=== PATIENT | female | born 2005 | race Two or more races ===

== ENCOUNTER 2024-05-02 20:42 | Emergency (ER) | payer MEDICAID ==
[~2024-05-02] VITALS: Ht 154.9 cm; Wt 52.9 kg
[2024-05-02 20:42] VITALS: BP 113/69; RESP 20; O2SAT 97
[2024-05-02 21:17] LABS: Basophils # (auto) 0 10 ^3/uL (0-0.2); Basophils % (auto) 0.3 % (0.0-2.0); Eosinophils # (auto) 0.2 10 ^3/uL (0-0.8); Eosinophils % (auto) 1.8 % (0.0-7.0); Hematocrit 33.2 % (36.0-46.0); Hemoglobin 11.5 g/dL (12.2-16.2); Lymphocytes # (auto) 2.2 10 ^3/uL (0.4-5.4); Lymphocytes % (auto) 23.7 % (10.0-50.0); Mean Corpuscular Hgb Conc. 34.5 g/dL (32.0-36.0); Monocytes # (auto) 0.5 10 ^3/uL (0-1.3); Monocytes % (auto) 5.8 % (0.0-12.0); Neutrophils # (auto) 6.4 10 ^3/uL (1.6-8.6); Neutrophils % (auto) 68.4 % (37.0-80.0); Platelet Count (auto) 342 10^3/uL (140-450); Red Blood Cells 3.95 10^6/uL (4.0-5.20); Red Cell Distribution Width 14.7 % (11.8-14.3); White Blood Cell 9.4 10^3/uL (4.4-10.8)
[2024-05-02 21:38] LABS: Alanine Aminotransferase 15 U/L (7-40); Albumin 3.9 g/dL (3.2-4.8); Alkaline Phosphatase 102 U/L (46-116); Anion Gap 7 (5-15); Aspartate Aminotransferase 11 U/L (13-40); BUN/Creatinine Ratio 9.2 (10.0-20.0); Bilirubin, Total 0.3 mg/dL (0.2-1.0); Blood Urea Nitrogen 6 mg/dL (9-23); Calcium 9.3 mg/dL (8.7-10.4); Carbon Dioxide 24 mmol/L (20-30); Chloride 105 mmol/L (98-107); Glucose 89 mg/dL (74-106); Potassium 4.3 mmol/L (3.5-5.1); Sodium 136 mmol/L (136-145); Total Protein 7.1 g/dL (5.7-8.2)
[2024-05-02 23:12] VITALS: PULSE 78
== END 2024-05-02 23:37 | disposition home or self-care (01) ==
LOC: ER 20:42
DX: O99.412 Diseases of the circulatory system complicating pregnancy, second trimester (principal); R10.2 Pelvic and perineal pain; O26.892 Other specified pregnancy related conditions, second trimester; Z3A.24 24 weeks gestation of pregnancy; Z88.6 Allergy status to analgesic agent
CPT/HCPCS: 36415; 80053; 83880; 84484; 84702; 85025; 85379; 93005

== ENCOUNTER 2024-05-11 13:51 | Emergency (ER) | payer MEDICAID ==
[2024-05-11 14:04] VITALS: BP 91/59; PULSE 98; RESP 18; O2SAT 97
[2024-05-11 14:49] LABS: Basophils # (auto) 0 10 ^3/uL (0-0.2); Basophils % (auto) 0.2 % (0.0-2.0); Eosinophils # (auto) 0.1 10 ^3/uL (0-0.8); Eosinophils % (auto) 0.6 % (0.0-7.0); Hematocrit 32.2 % (36.0-46.0); Hemoglobin 10.9 g/dL (12.2-16.2); Lymphocytes # (auto) 1.6 10 ^3/uL (0.4-5.4); Lymphocytes % (auto) 19.3 % (10.0-50.0); Mean Corpuscular Hemoglobin 28.3 pg (28.0-32.0); Mean Corpuscular Hgb Conc. 33.9 g/dL (32.0-36.0); Mean Corpuscular Volume 83.3 fL (80.0-100.0); Monocytes # (auto) 0.5 10 ^3/uL (0-1.3); Monocytes % (auto) 6.1 % (0.0-12.0); Neutrophils # (auto) 5.9 10 ^3/uL (1.6-8.6); Neutrophils % (auto) 73.8 % (37.0-80.0); Platelet Count (auto) 364 10^3/uL (140-450); Red Blood Cells 3.87 10^6/uL (4.0-5.20); Red Cell Distribution Width 14.6 % (11.8-14.3)
[2024-05-11 15:08] LABS: Alanine Aminotransferase 15 U/L (7-40); Albumin 3.9 g/dL (3.2-4.8); Alkaline Phosphatase 105 U/L (46-116); Anion Gap 7 (5-15); Aspartate Aminotransferase 11 U/L (13-40); BUN/Creatinine Ratio 7.7 (10.0-20.0); Bilirubin, Total 0.4 mg/dL (0.2-1.0); Blood Urea Nitrogen 5 mg/dL (9-23); Carbon Dioxide 25 mmol/L (20-30); Chloride 104 mmol/L (98-107); Glucose 78 mg/dL (74-106); Potassium 3.9 mmol/L (3.5-5.1); Sodium 136 mmol/L (136-145); Total Protein 6.6 g/dL (5.7-8.2)
== END 2024-05-11 21:33 | disposition home or self-care (01) ==
LOC: ER 13:51
DX: O26.892 Other specified pregnancy related conditions, second trimester (principal); O21.9 Vomiting of pregnancy, unspecified; R07.89 Other chest pain; R10.13 Epigastric pain; Z3A.27 27 weeks gestation of pregnancy; Z88.8 Allergy status to other drugs, medicaments and biological substances
CPT/HCPCS: 36415; 80053; 84484; 85025; 93005

== ENCOUNTER 2024-07-29 09:25 | Observation (INO) | payer MEDICAID ==
--- NOTE | 2024-07-29 10:54 | DVH ---
BIOPHYSICAL PROFILE HISTORY: low shahid TECHNIQUE: Multiple transabdominal real-time grayscale sonographic images through the gravid uterus of the fetus with duplex Doppler color flow and M-mode spectral analysis FINDINGS: BIOPHYSICAL PROFILE: breathing score: 2 movement score: 2 tone score: 2 Quantitative SHAHID score: 2 (SHAHID: 5.8 Cm.) Total score: 8/8 The cervix is not seen Single live fetus in cephalic presentation. heart rate 153 beats per minute. Anterior placenta without previa or abruption Biophysical profile score 8/8 corresponding to an LAUREN of 08/08/24 IMPRESSION: Biophysical profile score: 8/8 SHAHID 5.8 cm.
--- NOTE | 2024-07-29 13:06 | DVH ---
EXAM: US OBSTERICAL LIMITED CLINICAL HISTORY: low shahid COMPARISON: None TECHNIQUE: Grayscale, color-flow Doppler, and spectral Doppler ultrasound of the pelvis is performed by transabdominal technique. Findings/Impression: Single live intrauterine in vertex presentation with heart rate of 168 bpm. Placenta is anterior in location without evidence of previa or abruption. Amniotic fluid is within normal limits with SHAHID 6.3 cm and MVP 3.4 cm. Normal SHAHID (5-25 cm) Normal MVP (2-8 cm)
--- NOTE | 2024-07-30 09:55 | DVHDS2 ---
Obstetrics Discharge Summary Obstetrics Discharge Summary Date of Admission: Jul 29, 2024 Date of Discharge: Jul 29, 2024 Reason For Admission: Others (Low SHAHID) Procedures: NST, Ultrasound (SHAHID x2 largest pocket 3 cm SHAHID less than 10 BPP 8/8) Discharge Diagnosis: Others (Low SHAHID heart tones reassuring no sign of rupture of membranes BPP 8/8 SHAHID less than 10 largest vertical pocket 3 cm plus) Discharge Information: Activity (Pelvic rest no intercourse), Diet (Routine), Medications (None), Instructions (From precautions, labor precautions, kick counts), Discharge to (Home), Discarge date (07/29/2024 follow up 24 hours or p.r.n.) REKHA PEARL DO Jul 30, 2024 09:55
== END 2024-07-29 13:08 | disposition home or self-care (01) ==
LOC: LDRP 09:25
PROVIDERS: ADMIT Obstetrics & Gynecology; ATTEND Obstetrics & Gynecology
DX: O41.03X0 Oligohydramnios, third trimester, not applicable or unspecified (principal); Z3A.38 38 weeks gestation of pregnancy; Z88.6 Allergy status to analgesic agent; Z79.899 Other long term (current) drug therapy
CPT/HCPCS: 59025; 76815; 76818; 81002; 94760; G0378

== ENCOUNTER 2024-07-30 09:46 | Observation (INO) | payer MEDICAID ==
[~2024-07-30] VITALS: Ht 154.9 cm; Wt 59.4 kg
--- NOTE | 2024-07-30 11:12 | DVH ---
BIOPHYSICAL PROFILE HISTORY: Low SHAHID TECHNIQUE: Multiple transabdominal real-time grayscale sonographic images through the gravid uterus of the fetus with duplex Doppler color flow and M-mode spectral analysis FINDINGS: BIOPHYSICAL PROFILE: breathing score: 2 movement score: 2 tone score: 2 Quantitative SHAHID score: 2 (SHAHID: 6.5 Cm.) Total score: 8/8 The cervix not seen. Single live fetus in cephalic presentation. heart rate 158 beats per minute. Anterior placenta without previa or abruption Biophysical profile score 8/8 corresponding to an LAUREN of 08/08/24 IMPRESSION: Biophysical profile score: 8/8 SHAHID 6.5 cm
[2024-07-30 11:54] LABS: Fern Testing Negative
--- NOTE | 2024-07-30 12:01 | DVH ---
LIMITED OB ULTRASOUND > 14 WKS: HISTORY: Limited TECHNIQUE: Multiple real-time grayscale images of the gravid uterus with duplex Doppler color flow an d M-mode spectral analysis. TRANSDUCER: Transabdominal COMPARISON: US OBSTERICAL LIMITED on DOS: 07/29/24 FINDINGS: IUP single live fetus at 36 weeks and 1 day based on composite averages of the BPD, head circumferenc e, abdominal circumference and femur length Estimated weight 2803 grams heart rate 167 beats per minute SHAHID 6.4 cm Cervix is not visualized Cephalic Presentation Anterior Placenta without previa or abruption. IMPRESSION: IUP single live fetus at 36 weeks and 1 day AUA corresponding to an LAUREN of 08/26/2024
--- NOTE | 2024-07-30 15:32 | DVHDS2 ---
Obstetrics Discharge Summary Obstetrics Discharge Summary Date of Admission: Jul 30, 2024 Date of Discharge: Jul 30, 2024 Reason For Admission: Observational/Evaluation ( Status), Others (Patient has history of oligohydramnios 30+ weeks here for SHAHID BPP and to rule out SROM) Discharge Diagnosis: Others (Reassuring heart tones vertical pocket 6+ amniotic fluid, reassuring heart tones BPP 8 out of 8) Discharge Information: Activity, Diet (Routine), Medications (None), Instructions (srom precautions kick counts labor precautions), Discharge to (Home), Discarge date (July 30, 2024) REKHA PEARL DO Jul 30, 2024 15:32
== END 2024-07-30 12:13 | disposition home or self-care (01) ==
LOC: LDRP 09:46
PROVIDERS: ADMIT Obstetrics & Gynecology; ATTEND Obstetrics & Gynecology
DX: O41.03X0 Oligohydramnios, third trimester, not applicable or unspecified (principal); Z3A.38 38 weeks gestation of pregnancy; Z79.899 Other long term (current) drug therapy
CPT/HCPCS: 59025; 76805; 76818; 81002; 84112; 94760; G0378; Q0114

== ENCOUNTER 2024-07-31 13:06 | Observation (INO) | payer MEDICAID ==
--- NOTE | 2024-07-31 15:11 | DVH ---
BIOPHYSICAL PROFILE HISTORY: Low SHAHID TECHNIQUE: Multiple transabdominal real-time grayscale sonographic images through the gravid uterus of the fetus with duplex Doppler color flow and M-mode spectral analysis FINDINGS: BIOPHYSICAL PROFILE: breathing score: 2 movement score: 2 tone score: 2 Quantitative SHAHID score: 2 (SHAHID: 6.4 Cm.) Total score: 8/8 Single live fetus in cephalic presentation. heart rate 174 beats per minute. Anterior placenta without previa or abruption There is suggestion of nuchal cord. IMPRESSION: 1. Biophysical profile score: 8/8 2. SHAHID near lower limit of normal. 3. Possible nuchal cord. HS:Y
--- NOTE | 2024-08-01 15:10 | DVHDS2 ---
Physician Discharge Progress N Final Diagnosis: rom ruled out Operations or Procedures: Operations or Procedures nst,sono Condition on Discharge: Good Disposition: Home Discharge Instructions: Diet: Regular Activity: No Restrictions, As Tolerated Follow Up/Referral: Seguimiento con el Dr. Kaykay hill en la clinica de obstetricia a las 10:00 a[address]. Medications: na Follow Up Care: Specialist: 2d Discharge Statement: "Patient was advised to return to the ER or call 911 if any headaches, dizziness, shortness of breath, chest pain, abdominal pain, bleeding, fevers, or worsening of medical condition. Patient was counseled about treatment plan, medications, possible side effects, patientverbalized understanding. All questions were answered to the best of my ability. This discharge took greater then 30 minutes in planning, reviewing documentat ion, counseling the patient, and discussing with other team members." SALMA CRAMER DO Aug 01, 2024 15:10
== END 2024-07-31 15:34 | disposition home or self-care (01) ==
LOC: UNDOADMOB 13:06 → LDRP 13:06
PROVIDERS: ADMIT Obstetrics & Gynecology; ATTEND Obstetrics & Gynecology
DX: O41.03X0 Oligohydramnios, third trimester, not applicable or unspecified (principal); O26.893 Other specified pregnancy related conditions, third trimester; N89.8 Other specified noninflammatory disorders of vagina; Z3A.38 38 weeks gestation of pregnancy; Z88.6 Allergy status to analgesic agent
CPT/HCPCS: 59025; 76818; 81002; G0378

== ENCOUNTER 2024-08-01 19:00 | Inpatient (IN) | payer MEDICAID ==
[~2024-08-01] VITALS: Ht 157.5 cm; Wt 59.4 kg
[2024-08-01] MEDS ORDERED: LIDOCAINE 2%HCL (LOCAL ANESTH.) INJ 20ML MDV IJ PRN (20:30)
[2024-08-01 21:06] LABS: Urine Bacteria None Seen /hpf (None Seen)
[2024-08-01] MEDS: NALOXONE HCL 0.4 MG/ML VIAL IV ONE (21:15)
[2024-08-01] MEDS: LIDOCAINE HCL 2 %PF INJ 10ML AMP IJ ONE (21:15)
[2024-08-01 21:25] LABS: Basophils # (auto) 0 10 ^3/uL (0-0.2); Eosinophils # (auto) 0 10 ^3/uL (0-0.8); Hemoglobin 11.3 g/dL (12.2-16.2); Monocytes # (auto) 0.5 10 ^3/uL (0-1.3); Neutrophils # (auto) 5.8 10 ^3/uL (1.6-8.6)
[2024-08-01 21:26] LABS: Basophils % (auto) 0.3 % (0.0-2.0); Eosinophils % (auto) 0.3 % (0.0-7.0); Hematocrit 34.2 % (36.0-46.0); Lymphocytes # (auto) 2.2 10 ^3/uL (0.4-5.4); Lymphocytes % (auto) 25.4 % (10.0-50.0); Mean Corpuscular Volume 78.7 fL (80.0-100.0); Monocytes % (auto) 6.1 % (0.0-12.0); Neutrophils % (auto) 67.9 % (37.0-80.0); Nucleated Red Blood Cells % 0.2 %; Platelet Count (auto) 282 10^3/uL (140-450); Red Blood Cells 4.34 10^6/uL (4.0-5.20); Red Cell Distribution Width 15.3 % (11.8-14.3); White Blood Cell 8.6 10^3/uL (4.4-10.8)
[2024-08-01 21:31] LABS: Amphetamine Screen, Urine Neg (NEGATIVE); Barbiturate Scree,Urine Neg (NEGATIVE); Benzodiazephine Screen, Urine Neg (NEGATIVE); Cocaine Screen, Urine Neg (NEGATIVE)
[2024-08-01 21:32] LABS: Cannabinoid Screen, Urine Neg (NEGATIVE); Opiate Scree,Urine Neg (NEGATIVE); Phencyclidine Screen, Urine Neg (NEGATIVE)
[2024-08-01 21:35] LABS: Alanine Aminotransferase 12 U/L (7-40); Alkaline Phosphatase 322 U/L (46-116); Anion Gap 10 (5-15); Aspartate Aminotransferase 12 U/L (13-40); BUN/Creatinine Ratio 17.3 (10.0-20.0); Bilirubin, Total 0.3 mg/dL (0.2-1.0); Blood Urea Nitrogen 14 mg/dL (9-23); Carbon Dioxide 23 mmol/L (20-31); Chloride 104 mmol/L (98-107); Glucose 92 mg/dL (74-106); Potassium 3.8 mmol/L (3.5-5.1); Sodium 137 mmol/L (136-145); Total Protein 6.9 g/dL (5.7-8.2)
[2024-08-01 21:38] LABS: INR 0.89 (0.9-1.15); Partial Thromboplastin Time 26.9 SEC (24.5-34.5); Prothrombin Time 9.5 sec (9.3-11.8)
[2024-08-01 21:45] LABS: Urine Blood Negative /uL (Negative); Urine Clarity Clear (Clear); Urine Color Light-Yellow (Yellow); Urine Protein, UAD Negative (Negative); Urine Specific Gravity 1.015 (1.001-1.035); Urine Urobilinogen Normal (Negative); Urine WBC 2 /hpf (0 - 5); Urine pH 5.5 (5.0-9.0)
[2024-08-01] MEDS: fentaNYL CITRATE 100 MCG/2 ML VL IV ONE (21:48)
[2024-08-01 21:50] LABS: Fern Testing Negative
[2024-08-01] MEDS: WITCH HAZEL-GLYCERIN PAD TOP PRN (21:52)
[2024-08-01] MEDS: DERMOPLAST 60ML BOTTLE TOP PRN (21:52)
[2024-08-01] MEDS: PHISODERM TOP SOLN 240ML BTL TOP PRN (21:52)
[2024-08-01] MEDS: ROPIVACAINE HCL 200 ML ONE (21:52)
[2024-08-01] MEDS: LACTATED RINGER'S 1,000 ML IV ONE (21:53)
[2024-08-01] MEDS: LACTATED RINGER'S 1,000 ML IV SCH (21:54)
[2024-08-01] MEDS: NALBUPHINE HCL 10 MG/1ml INJECTION IV ONE (22:19)
--- NOTE | 2024-08-01 22:57 | DVHHP2 ---
OB CC & HPI Date Date of Admission: Aug 01, 2024 Patient Identification: : 2 Para: 1 EDC: Aug 08, 2024 EGA: 39w1d Chief Complaints: Reason for admission: active labor History of Present Complaints 19yo SIUP@39.0 wks presents in labor. Pt reports UCs Q3 min that started this morning with clear LOF. Wants an epidural. Denies VB/GARCES/vision changes/RUQ pain. Endorses +FM. PNC: Routine PNC at [facility] with Dr. Mccracken PNC uncomplicated OB hx: x1, uncomplicated in 2021 Past Medical History Cardiac: No pertinent Hx Pulmonary: No pertinent Hx Central Nervous System: No pertinent Hx GI: No pertinent Hx Hemotology/Oncology: No pertinent Hx Hepatobiliary: No pertinent Hx Psychiatric: No pertinent Hx Musculoskeletal: No pertinent Hx Rheumotologic: No pertinent Hx Infectious Disease: No peritnent Hx ENT: No pertinent Hx Renal/: No pertinent Hx Endocrine: No pertinent Hx Dermatology: No pertinent Hx Past Surgical History: No pertinent Hx OB History OB History Care: Good Care Ultrasounds: Normal mid trimester US Obstetrical Complications: None Medical Complications: None Allergies: Coded Allergies: NO KNOWN ALLERGIES (Unverified , 08/01/24) Home Meds No Active Prescriptions or Reported Meds Home Meds PNV Current Medications Current Medications Medications (Trade) Dose Ordered Sig/Cami Route PRN Reason Start Time Stop Time Status Last Admin Lactated Ringer's 1,000 ml @ 125 mls/hr Q8H IV 08/01/24 20:30 08/01/24 21:54 Witch Linda (Tucks) 1 pad PRN PRN TOP PERINEAL AREA DISCOMFORT 08/01/24 20:30 08/01/24 21:52 Sodium Lauryl Sulfate (Phisoderm) 240 ml PRN PRN TOP PERINEAL AREA DISCOMFORT 08/01/24 20:30 08/01/24 21:52 Benzocaine (Dermoplast) 1 applic PRN PRN TOP PERINEAL AREA DISCOMFORT 08/01/24 20:30 08/01/24 21:52 Lidocaine HCl (Xylocaine) 20 ml ONCE PRN IJ PERINEAL AREA DISCOMFORT 08/01/24 20:30 Family & Social History Family/Social History Past Family/Social History: denies Blood Type: B+ Rubella: immune RPR/VDRL: Negative GBS Status: Negative HBsAG: Negative Review of Systems Constitutional: No symptom reported Ears, Nose, & Throat: No symptom reported Eyes: No symptom reported Pulmonary/Respiratory: No symptom reported Cardiovascular: No symptom reported Gastrointestinal: No symptom reported Genitourinary: No symptom reported Musculoskeletal: No symptom reported Skin: No symptom reported Psychiatric: No symptom reported Endocrine: No symptom reported Hemotologic/Lymphatic: No symptom reported OB Admission Exam Physical Exam Vitals: VSS, see chart HEENT: TMs Normal, Fontanelles Normal, Nasal Mucosa Normal, Eyes non-injected, Oropharynx Normal, PERRLA, Moist Membranes, EOMI Heart: Rhythm Normal Lungs: Clear Abdomen: Gravid Extremities: Normal Reflexes: Normal Cervical Dilatation: 4cm Effacement: Other Station: 0 Membranes: Ruptured Amniotic Fluid: Clear Heart Rate: 140's Accelerations: Accelerations Present Decelerations: No Decelerations Short Term Variability: Present Senior Living Variability: Average (6-25) Contractions on Admission: < 5 Minutes Apart Date/Time Contractions Began: 0800 08/01/24 Frequency of Contractions: q3 min Duration: 60 sec Intensity: Moderate OB Plan Plan Admitting Diagnosis: SROM/Active Labor Plan: Expectant Management Other Plan: A: 19yo IUP@39.0wks Active labor SROM, clear fluid at 0700 Category I EFM GBS negative P: Admit to L&D Informed consent obtained Expectant management for now due to frequent UCs monitoring per order Routine labs ordered Pain mgmt PRN Frequent position changes in and out of bed encouraged Intrauterine resuscitation PRN Anticipate [facility] Aug 01, 2024 22:57
[2024-08-02] MEDS: LACT. RINGERS/OXYTOCIN 20UNITS 500 ML IV ONE ×2 (01:41→04:37)
--- NOTE | 2024-08-02 02:17 | LDN2 ---
Labor and Delivery Note Date 08/02/24 Age 19 2 Para 2 AB 0 EDC 08/07/24 EGA 39w1d Diagnosis SROM, active labor then Vaginal Delivery: VTX Vacuum Assisted: No Placenta: Spontaneous Sex: Male Weight pending Apgars 9/9 Nuchal Cord Present: Yes Nuchal Cord Transected: No Amniotic Fluid: Clear Anesthesia epidural Episiotomy: No Extension: No Lacerations: Yes (left labial abrasion, hemostatic, not repaired) Repaired with n/a EBL QBL 100 mL Complications none Conditions stable Home Health Nurse Licensed Practical Dr. Koch Delivery Summary At 0108 this 19yo now delivered a viable Male by w/ APGARS 9/9. Direct OA with loose Nuchal x1 with cord reduced after . Cord clamped and cut after pulsing stopped. Infant handed to mom/RN team. Cord blood not collected, maternal blood type B+. Intact 3-vessel cord placenta delivered spontaneously, Phipps. Patient had epidural anesthesia. Cervix/vagina inspected (intact) and left labial abrasion present which was hemostatic and did not require a repair. VSS. Fundus firm 2 below U, midline, light lochia. QBL 100ml. Patient to care and baby to couplet care. [facility] Aug 02, 2024 02:17
[2024-08-02] MEDS ORDERED: ACETAMINOPHEN 325 MG TAB PO PRN (03:15)
[2024-08-02] MEDS: IBUPROFEN 600 MG TAB PO PRN (07:22)
[2024-08-02 07:30] VITALS: BP 110/71; PULSE 76; TEMP 97.6
[2024-08-02] MEDS: PRENATAL VITAMIN TAB PO SCH (09:36)
[2024-08-02] MEDS ORDERED: PREN27TA7 OR (10:09)
[2024-08-02 11:19] VITALS: BP 103/60; PULSE 92; TEMP 97.8
[2024-08-02 14:56] LABS: Basophils # (auto) 0 10 ^3/uL (0-0.2); Basophils % (auto) 0.2 % (0.0-2.0); Eosinophils # (auto) 0 10 ^3/uL (0-0.8); Eosinophils % (auto) 0.1 % (0.0-7.0); Hematocrit 26.2 % (36.0-46.0); Hemoglobin 8.7 g/dL (12.2-16.2); Lymphocytes # (auto) 2.1 10 ^3/uL (0.4-5.4); Lymphocytes % (auto) 18.7 % (10.0-50.0); Mean Corpuscular Hemoglobin 26.3 pg (28.0-32.0); Mean Corpuscular Hgb Conc. 33.2 g/dL (32.0-36.0); Mean Corpuscular Volume 79.3 fL (80.0-100.0); Monocytes # (auto) 0.7 10 ^3/uL (0-1.3); Monocytes % (auto) 5.8 % (0.0-12.0); Neutrophils # (auto) 8.6 10 ^3/uL (1.6-8.6); Neutrophils % (auto) 75.2 % (37.0-80.0); Platelet Count (auto) 247 10^3/uL (140-450); Red Cell Distribution Width 15.2 % (11.8-14.3); White Blood Cell 11.4 10^3/uL (4.4-10.8)
[2024-08-02 15:00] VITALS: BP 113/74; PULSE 68; RESP 15; TEMP 97.9; O2SAT 99
[2024-08-02] MEDS ORDERED: FERRCAP9 PO (17:22)
[2024-08-02] MEDS ORDERED: IBU600T PO (17:22)
[2024-08-02] MEDS ORDERED: DOCU-265 PO (17:22)
[2024-08-02] MEDS ORDERED: PREN27TA7 PO (17:22)
[2024-08-02] MEDS: ePHEDrine SULFATE 50 MG/ML AMP IV ONE (18:30)
[2024-08-02 19:00] VITALS: BP 123/73; PULSE 67; RESP 16; TEMP 97.8
[2024-08-02] MEDS: DOCUSATE SOD 100 MG CAP PO SCH (21:35)
[2024-08-02 23:00] VITALS: BP 104/61; PULSE 73; RESP 16; TEMP 97.9; O2SAT 99
--- NOTE | 2024-08-03 01:00 | DVHPN2 ---
Progress Note Date Seen: Aug 03, 2024 Subjective S: bleeding is less, eating food without issues, denies lightheaded/dizziness, pain well controlled with oral medications, no concerns with urinating, passing flatus, no BM yet, ambulating well, and formula vital signs Vital Sign Date Time Temp Pulse Resp B/P (MAP) Pulse Ox O2 Delivery O2 Flow Rate FiO2 08/02/24 23:00 97.9 73 16 104/61 (75) 99 97.9 08/02/24 19:00 Room Air Total Intake and Output 08/02/24 08/02/24 08/03/24 15:00 23:00 07:00 Output Total 650 ml Balance -650 ml medications Current Medications Medications Dose Ordered Sig/Cami Route Start Time Stop Time Status Last Admin Dose Admin Germain Mckeon 1 pad PRN PRN TOP 08/01/24 20:30 08/01/24 21:52 1 PAD Sodium Lauryl Sulfate 240 ml PRN PRN TOP 08/01/24 20:30 08/01/24 21:52 240 ML Benzocaine 1 applic PRN PRN TOP 08/01/24 20:30 08/01/24 21:52 1 APPLIC Ibuprofen 600 mg Q6HP PRN PO 08/02/24 03:15 08/02/24 15:46 600 MG Acetaminophen 650 mg Q6HPRN PRN PO 08/02/24 03:15 Docusate Sodium 200 mg HS PO 08/02/24 22:00 08/02/24 21:35 200 MG Prenat Multivit/ [place]/Iron/Folic Ac 1 DAILY PO 08/02/24 10:00 08/02/24 09:36 1 laboratory and microbiology Laboratory Tests 08/02/24 14:19 08/01/24 20:49 Test 08/01/24 20:49 Range/Units Serum Glucose 92 74-106 mg/dL Objective O: VSS Chest: heart sounds normal and lung sounds clear bilaterally Abd: soft, non-tender, fundus at U/firm/midline, active bowel sounds, no rebound or guarding Perineum: intact, no erythema/edema noted Ext: Non-tender, No edema, 2+ BLE DTRs Lochia: minimal See lab results Problems(with codes): (1) (normal spontaneous vaginal delivery) (2) Precipitous drop in hematocrit (3) Intact perineum Assessment/Plan A: 19yo now PPD#1 s/p Rh+ Rubella Immune and formula Pain control with PO medications Bowel regimen P: D/C home today Rx sent to pharmacy precautions and preeclampsia warning signs reviewed F/U with Dr. Mccracken in 2 weeks Plan discussed with: Patient, Spouse JENNIFER BERNAL CNM Aug 03, 2024 01:00
--- NOTE | 2024-08-03 01:00 | DVHDS2 ---
Obstetrics Discharge Summary Obstetrics Discharge Summary Date of Admission: Aug 01, 2024 Date of Discharge: Aug 03, 2024 Reason For Admission: Onset of Labor (SROM) Procedures: NST Intrapartum Procedures: Spontaneous vaginal deliv Procedures: Hct/date: (08/02/24), Hgb/date: (08/02/24) Operative Complicat: None Discharge Diagnosis: Term -Delivered Discharge Information: Activity (as tolerated, no heavy lifting and nothing in the vagina for 6 weeks), Diet (Routine), Medications (Rx sent), Instructions (Routine), Discharge to (Home), Accompanied by (partner), Discarge date (08/03/24) JENNIFER BERNAL CNM Aug 03, 2024 01:00
[2024-08-03 02:58] VITALS: BP 94/64; PULSE 64; RESP 16; TEMP 98; O2SAT 95
[2024-08-03 07:06] LABS: RPR Non Reactive (Non Reactive)
[2024-08-03 07:15] VITALS: BP 105/66; PULSE 60; RESP 16; TEMP 97.7; O2SAT 99
[2024-08-04 07:06] LABS: Chlamydia Trachomatis, NAA Negative (Negative); Neisseria gonorrhoeae, NAA Negative (Negative)
== END 2024-08-03 12:11 | disposition home or self-care (01) | DRG 560 ==
LOC: LDRP 19:00 → OBSVTOIN 20:10 → LDRP 20:15
PROVIDERS: ADMIT Obstetrics & Gynecology; ATTEND Obstetrics & Gynecology
PROC: 10E0XZZ Delivery of Products of Conception, External Approach (ICD-10-PCS; principal; 2024-08-02)
PROC: 0HQ9XZZ Repair Perineum Skin, External Approach (ICD-10-PCS; 2024-08-02)
PROC: 3E0R3BZ Introduction of Anesthetic Agent into Spinal Canal, Percutaneous Approach (ICD-10-PCS; 2024-08-02)
PROC: 00HU33Z Insertion of Infusion Device into Spinal Canal, Percutaneous Approach (ICD-10-PCS; 2024-08-02)
DX: O69.81X0 Labor and delivery complicated by cord around neck, without compression, not applicable or unspecified (principal); Z37.0 Single live birth; R71.0 Precipitous drop in hematocrit; O70.0 First degree perineal laceration during delivery; Z3A.39 39 weeks gestation of pregnancy
CPT/HCPCS: 36415; 59025; 59409; 62282; 80053; 80307; 81001; 85025; 85610; 85730; 86592; 86780; 86803; 86850; 86900; 86901; 94760; 94762; 96360; 96361; 96365; 96366; 96374; G0378; J2590